=== PATIENT | female | born 1990 | race Caucasian/White ===

== ENCOUNTER 2018-04-06 21:37 | Emergency (ER) | payer BC ==
--- NOTE | 2018-04-07 02:10 | ED PDOC ---
HPI: Female Pain Chief Complaint (Nursing): Abdominal Pain Chief Complaint (Provider): vaginal bleeding History Per: Patient History/Exam Limitations: no limitations Onset/Duration Of Symptoms: Days (1 week), Waxing/Waning Current Symptoms Are (Timing): Still Present Quality Of Discomfort: Cramping Additional History Per: Patient Additional Complaint(s): 27 y/o female, approx. 7 weeks gestation, presents for evaluation of vaginal bleeding x 1 week, worse today. Associated pelvic cramping. Denies fever, nausea/vomiting, chest pain, shortness of breath, palpitations, changes in bowel movements, urinary symptoms. No care thus far Abnormal Vaginal Bleeding: Yes Last Menstral Period: 02/16/18 : 2 Para: 0 Miscarriage: 1 Past Medical History Reviewed: Historical Data, Nursing Documentation, Vital Signs Vital Signs: Last Vital Signs Temp 98.1 F 04/06/18 23:25 Pulse 85 04/06/18 23:25 Resp 17 04/06/18 23:25 BP 132/79 04/06/18 23:25 Pulse Ox 98 04/06/18 23:25 - Medical History PMH: No Chronic Diseases - Surgical History Surgical History: No Surg Hx - Family History Family History: States: No Known Family Hx - Allergies Allergies/Adverse Reactions: Allergies Allergy/AdvReac Type Severity Reaction Status Date / Time Penicillins Allergy Mild RASH Verified 04/06/18 23:42 Review of Systems ROS Statement: Except As Marked, All Systems Reviewed And Found Negative Genitourinary Female: Positive for: Vaginal Bleeding, Pelvic Pain Physical Exam - Reviewed Nursing Documentation Reviewed: Yes Vital Signs Reviewed: Yes - Physical Exam Appears: Positive for: Well, Non-toxic, No Acute Distress Head Exam: Positive for: ATRAUMATIC, NORMAL INSPECTION, NORMOCEPHALIC Skin: Positive for: Normal Color Eye Exam: Positive for: Normal appearance ENT: Positive for: Normal ENT Inspection Cardiovascular/Chest: Positive for: Regular Rate, Rhythm Respiratory: Positive for: Normal Breath Sounds Gastrointestinal/Abdominal: Positive for: Normal Exam Pelvic Exam: Positive for: External Exam Normal, No Cerv. 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 Negative for: Active Bleeding Back: Positive for: Normal Inspection Extremity: Positive for: Normal ROM Neurologic/Psych: Positive for: Alert, Oriented (x3) - ECG O2 Sat by Pulse Oximetry: 98 - Progress ED Course And Treament: -cbc -cmp -beta hcg -type and screen -upreg -udip -OB tv u/s Obstetric ultrasound. Indication: Spotting. Technique: Transvaginal ultrasound images are obtained. Findings: The uterus measures 6.4x3.9x3.6 cm. Normal cervix measuring 3.5 cm in its length. Single, intrauterine gestation. Estimated gestational age is 5 weeks and 2 days. Gestational sac and yolk sac are noted without evidence of a pole. No free fluid is seen in the pelvic cul-de-sac. Normal ovaries. Impression: Single intrauterine gestation Patient educated on findings, discharged with instructions to follow up in 48 hours for repeat beta Return precautions given Disposition - Clinical Impression Clinical Impression: Threatened miscarriage - Patient ED Disposition Is Patient to be Admitted: No Counseled Patient/Family Regarding: Studies Performed, Diagnosis, Need For Followup - Disposition Disposition: Routine/Home Disposition Time: 03:58 Condition: STABLE Additional Instructions: Follow up in 48 hours for re-evaluation Return to ED sooner for worsening/concerning symptoms Instructions: Threatened Miscarriage
[2018-04-07 02:47] VITALS: RESP 17
[2018-04-07 05:16] VITALS: BP 122/65; PULSE 80; TEMP 98.5; O2SAT 99
[2018-04-07 09:13] LABS: BLOOD UREA NITROGEN 14 mg/dl (7-17)
[2018-04-07 09:14] LABS: ALB/GLOB RATIO 1.3 (1.0-2.1); ALT/SGPT 19 U/L (9-52); AST/SGOT 22 U/L (14-36); CALCIUM 8.9 mg/dL (8.4-10.2); GFR NON-AFRICAN AMERICAN > 60
--- NOTE | 2018-04-08 12:59 | US ---
Date of service: 04/07/2018 PROCEDURE: First trimester ultrasound HISTORY: ER ORDER COMPARISON: None. TECHNIQUE: Standard protocol for this study/examination. FINDINGS: LMP: 02/16/2018 Prior examinations from the current : None TECHNIQUE: Real-time 2D imaging, duplex and color Doppler. FINDINGS: No visible pole. Gestational age 5 weeks 2 days based on gestational sac measurement 1.19 cm Gestational age derived from LMP: 7 weeks 1 day JACEY based on LMP: 11/23/2018 JACEY based on biometry: 12/06/2018 Gestational concordance documented Yolk sac identified Cervix: No Cervical abnormalities: Negative examination for cervical dilatation or effacement. Closed cervix measuring 3.53 cm Subchorionic hemorrhage: None UTERUS: 3.6 x 3.9 x 6.4 cm. ADNEXA: Right: 2 x 2.1 x 2.7 cm. Normal Doppler arterial waveform documented. Left: 1.4 x 1.9 x 3.0 cm. Normal Doppler arterial waveform documented Fluid in the cul-de-sac: IMPRESSION: Early intrauterine gestation based on well-formed sac. No pole identified. Concordant findings (preliminary report) provided by [facility].
== END 2018-04-07 04:25 | disposition home or self-care (01) ==
LOC: H.ER 21:37
DX: O20.0 Threatened abortion (principal); Z3A.01 Less than 8 weeks gestation of pregnancy; Z88.0 Allergy status to penicillin

== ENCOUNTER 2018-04-09 08:55 | Emergency (ER) | payer BC ==
[2018-04-09 09:00] VITALS: BMI 22.4
[2018-04-09 09:01] VITALS: RESP 18
--- NOTE | 2018-04-09 09:35 | ED PDOC ---
HPI: General Adult Time Seen by Provider: 04/09/18 09:13 Chief Complaint (Nursing): Female Genitourinary Chief Complaint (Provider): Female Genitourinary History Per: Patient History/Exam Limitations: no limitations Additional Complaint(s): 27 year old female, who is A1 presents to the ED with follow up visit for a . Patient was seen here on April 06 for vaginal bleeding and . Ultrasound was done that showed an early IUP but since patient had vaginal bleeding, she was told to return in 2 to 3 days. Patient reports vaginal bleeding has stopped but has some cramping in the lower abdomen. Denies back pain, vomiting, or fevers. PMD: Adrian Lozano I Past Medical History Reviewed: Historical Data, Nursing Documentation, Vital Signs Vital Signs: Last Vital Signs Temp 98.2 F 04/09/18 09:00 Pulse 89 04/09/18 09:00 Resp 18 04/09/18 09:00 BP 122/71 04/09/18 09:00 Pulse Ox 97 04/09/18 09:00 - Medical History PMH: No Chronic Diseases Denies: Chronic Kidney Disease - Surgical History Surgical History: No Surg Hx - Family History Family History: States: Unknown Family Hx - Allergies Allergies/Adverse Reactions: Allergies Allergy/AdvReac Type Severity Reaction Status Date / Time Penicillins Allergy Mild RASH Verified 04/09/18 09:11 Review of Systems ROS Statement: Except As Marked, All Systems Reviewed And Found Negative Genitourinary Female: Negative for: Vaginal Bleeding Physical Exam - Reviewed Nursing Documentation Reviewed: Yes Vital Signs Reviewed: Yes - Physical Exam Appears: Positive for: No Acute Distress Head Exam: Positive for: ATRAUMATIC, NORMOCEPHALIC Skin: Positive for: Normal Color, Warm, Dry Eye Exam: Positive for: Normal appearance Neck: Positive for: Normal, Painless ROM Cardiovascular/Chest: Positive for: Regular Rate, Rhythm Respiratory: Positive for: Normal Breath Sounds. Negative for: Wheezing, Respiratory Distress Gastrointestinal/Abdominal: Positive for: Normal Exam, Soft. Negative for: Tenderness Extremity: Positive for: Normal ROM Neurologic/Psych: Positive for: Alert, Oriented - ECG O2 Sat by Pulse Oximetry: 97 (RA) Pulse Ox Interpretation: Normal Medical Decision Making Medical Decision Making: Initial Impression: Abdominal pain in Differential includes threatened miscarriage. Initial Plan: --Beta HCG OB transvaginal US From 04/07/2018 FINDINGS: LMP: 02/16/2018 Prior examinations from the current : None TECHNIQUE: Real-time 2D imaging, duplex and color Doppler. FINDINGS: No visible pole. Gestational age 5 weeks 2 days based on gestational sac measurement 1.19 cm Gestational age derived from LMP: 7 weeks 1 day JACEY based on LMP: 11/23/2018 JACEY based on biometry: 12/06/2018 Gestational concordance documented Yolk sac identified Cervix: No Cervical abnormalities: Negative examination for cervical dilatation or effacement. Closed cervix measuring 3.53 cm Subchorionic hemorrhage: None UTERUS: 3.6 x 3.9 x 6.4 cm. ADNEXA: Right: 2 x 2.1 x 2.7 cm. Normal Doppler arterial waveform documented. Left: 1.4 x 1.9 x 3.0 cm. Normal Doppler arterial waveform documented Fluid in the cul-de-sac: IMPRESSION: Early intrauterine gestation based on well-formed sac[place] [id number] almost twice previous. No abdominal pain or vaginal bleeding, previous US with confirmed IUP. Scribe Attestation: Documented by Tigre Conte acting as a scribe for Lola Eng MD. Provider Scribe Attestation: All medical record entries made by the Scribe were at my direction and personally dictated by me. I have reviewed the chart and agree that the record accurately reflects my personal performance of the history, physical exam, medi adria decision making, and the department course for this patient. I have also personally directed, reviewed, and agree with the discharge instructions and disposition. Disposition - Clinical Impression Clinical Impression: Threatened miscarriage - Patient ED Disposition Is Patient to be Admitted: No Doctor Will See Patient In The: Office Counseled Patient/Family Regarding: Studies Performed, Diagnosis, Need For Followup - Disposition Referrals: [facility] [Outside] Disposition: Routine/Home Disposition Time: 12:11 Condition: GOOD Additional Instructions: Follow up with your PCP in 1 week. LISSETT GRISSOM, thank you for letting us take care of you today. Your provider was Lola Eng MD and you were treated for FOLLOW UP. The emergency medical care you received today was directed at your acute symptoms. If you were prescribed any medication, please fill it and take as directed. It may take several days for your symptoms to resolve. Return to the Emergency Department if your symptoms worsen, do not improve, or if you have any other problems. Please contact your doctor or call one of the physicians/clinics you have been referred to that are listed on the Patient Visit Information form that is included in your discharge packet. Bring any paperwork you were given at discharge with you along with any medications you are taking to your follow up visit. Our treatment cannot replace ongoing medical care by a primary care provider outside of the emergency department. Thank you for allowing the [facility] team to be part of your care today. If you had an X-Ray or CT scan: A Radiologist will review the ED reading if any change in treatment is needed we will contact you. If you had a blood, urine, or wound culture: It will take several days for the results, if any change in treatment is needed we will contact you. If you had an STI test: It will take 48 hours for the results. Please call after 1 week if you have not heard back. Instructions: Threatened Miscarriage - POA Present On Arrival: None
[2018-04-09 12:34] VITALS: BP 110/69; PULSE 78; TEMP 98.6
[2018-04-09 12:45] VITALS: O2SAT 97
== END 2018-04-09 12:45 | disposition home or self-care (01) ==
LOC: H.ER 08:55
DX: O20.0 Threatened abortion (principal); Z88.0 Allergy status to penicillin